=== PATIENT | male | born 1955 | race Caucasian/White ===

== ENCOUNTER 2021-03-28 11:48 | Inpatient (IN) ==
[2021-03-28] MEDS ORDERED: SODIUM CHLORIDE 0.9% 1,000 ML IV STA (12:10)
[2021-03-28] MEDS ORDERED: cefTRIAXone 1,000 MG in SODIUM CHLORIDE 0.9% 100 ML IV STA (12:10)
[2021-03-28 12:59] LABS: Basophils % 0.2 % (0.0-0.8); Hematocrit 46.3 VOL% (42.0-52.0); Hemoglobin 16.1 GM/DL (14.0-18.0); Immature Granulocytes % 1.5 %; Immature Granulocytes Absolute 0.24 #; Lymphocytes # 0.3 10*3/uL (1.4-4.0); Lymphocytes % 1.9 % (21.2-54.2); Mean Corpuscular HGB Conc 34.8 GM/DL (32-36); Mean Platelet Volume 9.6 FL (9.6-12.0); Monocytes % 5.7 % (1.7-12.7); Neutrophils % 90.7 % (38.7-73.9); Platelet Count 174 T/CUMM (130-400); Red Cell Distribution Width 12.3 % (9.3-17.3); White Blood Count 16.1 T/CUMM (4-12)
[2021-03-28 13:16] LABS: Albumin 2.9 G/DL (3.4-5.0); Bilirubin,Total 2.6 MG/DL (0.20-1.00); Calcium 8.7 MG/DL (8.5-10.1); Osmolality,Calculated 262.7 MOS/KG (273-304); Potassium 3.6 MMOL/L (3.5-5.1); Total Protein 6.9 G/DL (6.4-8.2)
[2021-03-28 14:23] LABS: Band Neutrophils 7 % (0-10); Lymphocytes 3 % (20-55); Segmented Neutrophils 86 % (50-85); Total Cells Counted 100
[2021-03-28 14:24] LABS: Platelet Estimate Adequate
[2021-03-28 14:37] LABS: Bacteria,Urine Occasional /HPF (Few); Bilirubin,Urine Negative (Negative); Blood, Urine Negative (Negative); Glucose,Urine (UA) Negative (Negative); Hyaline Casts,Urine 17 /LPF (0-3); Ketones,Urine Negative (Negative); Mucus,Urine Moderate /LPF (Occasional); Nitrite,Urine Positive (Negative); Protein,Urine 100 MG/DL; Squamous Epithelial Cell,Urine Occasional /HPF (0-10); Urine Appearance CLEAR (Clear); Urine Color Amber (Yellow)
[2021-03-28] MEDS ORDERED: BISACODYL 5 MG TABLET PO PRN (16:04)
[2021-03-28] MEDS ORDERED: LACTATED RINGERS 1,000 ML IV ONE (16:16)
[2021-03-28] MEDS ORDERED: ACETAMINOPHEN 325 MG TABLET PO PRN (18:02)
[2021-03-28] MEDS ORDERED: ONDANSETRON 4 MG/2 ML VIAL IV PRN (18:02)
[2021-03-28] MEDS: PIPERACILLIN/TAZOBACTAM 3,375 MG in SODIUM CHLORIDE 0.9% 100 ML IV SCH (18:31)
[2021-03-28] MEDS: ACETAMINOPHEN 325 MG TABLET PO PRN (20:39)
[2021-03-29] MEDS: LACTATED RINGERS 1,000 ML IV SCH ×5 (01:30→17:21)
[2021-03-29] MEDS: PIPERACILLIN/TAZOBACTAM 3,375 MG in SODIUM CHLORIDE 0.9% 100 ML IV SCH ×3 (02:31→17:21)
[2021-03-29 05:51] LABS: Basophils # 0.1 10*3/uL (0.0-0.2); Basophils % 0.3 % (0.0-0.8); Eosinophils % 0.1 % (0.00-10.9); Hematocrit 41.9 VOL% (42.0-52.0); Hemoglobin 14.1 GM/DL (14.0-18.0); Immature Granulocytes % 1.4 %; Immature Granulocytes Absolute 0.25 #; Lymphocytes # 0.6 10*3/uL (1.4-4.0); Lymphocytes % 3.2 % (21.2-54.2); Mean Corpuscular HGB Conc 33.7 GM/DL (32-36); Mean Corpuscular Volume 89.9 FL (87-102); Mean Platelet Volume 10.3 FL (9.6-12.0); Monocytes % 9.2 % (1.7-12.7); Neutrophils % 85.8 % (38.7-73.9); Platelet Count 150 T/CUMM (130-400); Red Blood Count 4.66 MC/CUMM (3.8-5.5); Red Cell Distribution Width 12.7 % (9.3-17.3); White Blood Count 17.8 T/CUMM (4-12)
[2021-03-29 06:25] LABS: Albumin 2.4 G/DL (3.4-5.0); Bilirubin,Total 2.3 MG/DL (0.20-1.00); Calcium 8.4 MG/DL (8.5-10.1); Osmolality,Calculated 269.2 MOS/KG (273-304); Potassium 3.8 MMOL/L (3.5-5.1)
[2021-03-29 07:00] LABS: Lymphocytes 1 % (20-55); Platelet Estimate Adequate; Segmented Neutrophils 94 % (50-85); Total Cells Counted 100
[2021-03-29] MEDS: ACETAMINOPHEN 325 MG TABLET PO PRN (08:12)
[2021-03-29] MEDS: PANTOPRAZOLE 40 MG VIAL IV SCH (08:12)
[2021-03-29] MEDS ORDERED: INDOCYANINE GREEN 25 MG VIAL IV ONE (08:28)
[2021-03-29] MEDS ORDERED: TISSUE ADHESIVE 1 EACH APPLICATOR TOP ONE (08:54)
[2021-03-29] MEDS ORDERED: BUPIVACAINE MPF 0.25% 30 ML VIAL ONE (08:54)
[2021-03-29] MEDS ORDERED: LIDOCAINE 1%/EPI INJ 20 ML VIAL ONE (08:55)
[2021-03-29] MEDS ORDERED: PANTOPRAZOLE 40 MG TABLET PO SCH (09:00)
[2021-03-29] MEDS ORDERED: fentaNYL 100 MCG/2 ML VIAL ONE (09:22)
[2021-03-29] MEDS ORDERED: ROCURONIUM 50 MG/5 ML VIAL IV ONE (09:43)
[2021-03-29] MEDS ORDERED: propofoL 200 MG/20 ML VIAL IV ONE (09:43)
[2021-03-29] MEDS ORDERED: SUCCINYLCHOLINE 200 MG/10 ML VIAL ONE (09:43)
[2021-03-29] MEDS ORDERED: LIDOCAINE 2% 5 ML VIAL ONE (09:43)
[2021-03-29] MEDS ORDERED: SEVOFLURANE 1 UNIT/15 MINUTE INH ONE ×2 (09:44→10:36)
[2021-03-29] MEDS ORDERED: NEOSTIGMINE 10 MG/10 ML VIAL ONE (10:31)
[2021-03-29] MEDS ORDERED: GLYCOPYRROLATE 0.4 MG/2 ML VIAL ONE (10:31)
[2021-03-29] MEDS ORDERED: GLUCAGON 1 MG VIAL IM PRN (11:50)
[2021-03-29] MEDS ORDERED: DEXTROSE 50% 25 GM/50 ML VIAL IV PRN (11:50)
[2021-03-29] MEDS: CRANBERRY FRUIT 250 MG PO SCH ×2 (14:25→21:33)
[2021-03-29] MEDS: HYDROmorphone 2 MG/1 ML VIAL IV PRN ×2 (15:25→18:28)
[2021-03-29] MEDS: INSULIN REGULAR 100 UNIT/ML SUBCUT SCH ×2 (15:37→21:35)
[2021-03-30] MEDS: HYDROmorphone 2 MG/1 ML VIAL IV PRN ×2 (00:22→06:04)
[2021-03-30] MEDS: PIPERACILLIN/TAZOBACTAM 3,375 MG in SODIUM CHLORIDE 0.9% 100 ML IV SCH ×3 (02:05→18:37)
[2021-03-30] MEDS: LACTATED RINGERS 1,000 ML IV SCH (06:05)
[2021-03-30 06:46] LABS: Basophils % 0.2 % (0.0-0.8); Eosinophils % 0.3 % (0.00-10.9); Hematocrit 43.6 VOL% (42.0-52.0); Hemoglobin 14.6 GM/DL (14.0-18.0); Immature Granulocytes % 0.8 %; Immature Granulocytes Absolute 0.09 #; Lymphocytes # 0.5 10*3/uL (1.4-4.0); Lymphocytes % 4.3 % (21.2-54.2); Mean Corpuscular HGB Conc 33.5 GM/DL (32-36); Mean Platelet Volume 10.2 FL (9.6-12.0); Monocytes % 5.5 % (1.7-12.7); Neutrophils % 88.9 % (38.7-73.9); Platelet Count 114 T/CUMM (130-400); Red Blood Count 4.74 MC/CUMM (3.8-5.5); Red Cell Distribution Width 13.1 % (9.3-17.3); White Blood Count 11.7 T/CUMM (4-12)
[2021-03-30 07:01] LABS: Albumin 2.3 G/DL (3.4-5.0); Bilirubin,Total 1.7 MG/DL (0.20-1.00); Calcium 8.1 MG/DL (8.5-10.1); Osmolality,Calculated 278.8 MOS/KG (273-304); Potassium 3.6 MMOL/L (3.5-5.1); Total Protein 6.6 G/DL (6.4-8.2)
[2021-03-30] MEDS: INSULIN REGULAR 100 UNIT/ML SUBCUT SCH ×2 (07:50→13:35)
[2021-03-30] MEDS ORDERED: LACTATED RINGERS 1,000 ML IV ONE (08:28)
[2021-03-30] MEDS: CRANBERRY FRUIT 250 MG PO SCH ×3 (09:10→20:57)
[2021-03-30] MEDS: PANTOPRAZOLE 40 MG VIAL IV SCH (09:11)
[2021-03-30] MEDS: POTASSIUM CHLORIDE 10 MEQ TABLET PO SCH (09:11)
[2021-03-30 11:09] LABS: Band Neutrophils 10 % (0-10); Eosinophils 1 % (0-10); Lymphocytes 5 % (20-55); Platelet Estimate Adequate; Segmented Neutrophils 81 % (50-85); Total Cells Counted 100
[2021-03-30] MEDS: ACETAMINOPHEN 325 MG TABLET PO PRN (18:38)
[2021-03-30] MEDS ORDERED: ZALEPLON 5 MG CAPSULE PO PRN (22:25)
[2021-03-31] MEDS: PIPERACILLIN/TAZOBACTAM 3,375 MG in SODIUM CHLORIDE 0.9% 100 ML IV SCH ×3 (02:05→09:14)
[2021-03-31 05:41] LABS: Basophils % 0.3 % (0.0-0.8); Eosinophils # 0.1 10*3/uL (0.0-0.87); Eosinophils % 0.9 % (0.00-10.9); Hemoglobin 12.4 GM/DL (14.0-18.0); Immature Granulocytes % 0.7 %; Immature Granulocytes Absolute 0.08 #; Lymphocytes # 0.7 10*3/uL (1.4-4.0); Lymphocytes % 5.8 % (21.2-54.2); Mean Corpuscular HGB Conc 32.6 GM/DL (32-36); Mean Platelet Volume 10.2 FL (9.6-12.0); Monocytes % 8.9 % (1.7-12.7); Neutrophils % 83.4 % (38.7-73.9); Platelet Count 124 T/CUMM (130-400); Red Blood Count 4.13 MC/CUMM (3.8-5.5); Red Cell Distribution Width 12.8 % (9.3-17.3); White Blood Count 11.5 T/CUMM (4-12)
[2021-03-31 06:07] LABS: Microcytosis 1+
[2021-03-31 06:08] LABS: Platelet Estimate Adequate
[2021-03-31 06:19] LABS: Albumin 1.8 G/DL (3.4-5.0); Bilirubin,Direct 0.51 MG/DL (0.0-0.20); Bilirubin,Indirect 0.5 MG/DL (0.0-1.0); Calcium 7.8 MG/DL (8.5-10.1); Osmolality,Calculated 276.7 MOS/KG (273-304); Potassium 3.5 MMOL/L (3.5-5.1); Total Protein 5.7 G/DL (6.4-8.2)
[2021-03-31] MEDS: LACTATED RINGERS 1,000 ML IV SCH ×3 (06:44→08:47)
[2021-03-31 07:42] VITALS: BP 145/75
[2021-03-31] MEDS: POTASSIUM CHLORIDE 10 MEQ TABLET PO SCH (08:47)
[2021-03-31] MEDS: PANTOPRAZOLE 40 MG VIAL IV SCH (09:06)
[2021-03-31] MEDS ORDERED: CEFUROXIME 500 MG TABLET PO SCH (09:30)
== END 2021-03-31 11:17 | disposition home or self-care (01) | DRG 854 ==
LOC: N.ED 11:48 → N.EDINP 15:39 → N.3E 18:01
PROVIDERS: ADMIT Surgery; ATTEND Surgery